=== PATIENT | female | born 1980 | race Caucasian/White ===

== ENCOUNTER 2019-03-24 00:25 | Emergency (ER) | payer OTHER ==
[2019-03-24 00:32] VITALS: BP 96/61; PULSE 50; TEMP 97.5; BMI 23.3
[2019-03-24] MEDS ORDERED: HYOSCYAMINE SULFATE 0.125 MG *ODT ONE (00:54)
[2019-03-24] MEDS ORDERED: HYOSCYAMINE SULFATE 0.125 MG *ODT PO ONE (00:54)
--- NOTE | 2019-03-24 00:54 | PDOC ---
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 She had mild abdominal discomfort throughout the afternoon and began to have diarrhea in the early evening(low volume, brown, watery; no blood or mucous). Pain became more severe later in the evening and patient reported here. No nausea/vomiting/fever noted no recent travel. no known sick contacts Past History - Past Medical History Allergies/Adverse Reactions: Allergies Allergy/AdvReac Type Severity Reaction Status Date / Time No Known Allergies Allergy Verified 03/24/19 00:28 Home Medications: Ambulatory Orders Hyoscyamine Odt [Levsin Odt -] 0.125 mg PO TID #10 tab.rapdis 03/24/19 COPD: No Other medical history: ENDOMETRIOSIS - Suicide/Smoking/Psychosocial Hx Smoking History: Never smoked Have you smoked in the past 12 months: No Information on smoking cessation initiated: No Hx Alcohol Use: No Drug/Substance Use Hx: No Review of Systems - Review of Systems Comments:: GENERAL/CONSTITUTIONAL: No fever or chills. No weakness. HEAD, EYES, EARS, NOSE AND THROAT: No change in vision. No ear pain or discharge. No sore throat. CARDIOVASCULAR: No chest pain or shortness of breath. RESPIRATORY: No cough, wheezing, or hemoptysis. GASTROINTESTINAL: No nausea, vomiting, diarrhea or constipation. GENITOURINARY: No dysuria, frequency, or change in urination. MUSCULOSKELETAL: No joint or muscle swelling or pain. No neck or back pain. SKIN: No rash NEUROLOGIC: No headache, vertigo, loss of consciousness, or change in strength/ sensation. ENDOCRINE: No increased thirst. No abnormal weight change. HEMATOLOGIC/LYMPHATIC: No anemia, easy bleeding, or history of blood clots. ALLERGIC/IMMUNOLOGIC: No hives or skin allergy. *Physical Exam - Vital Signs Last Vital Signs Temp Pulse Resp BP Pulse Ox 97.5 F L 50 L 18 96/61 100 03/24/19 00:29 03/24/19 00:29 03/24/19 00:29 03/24/19 00:29 03/24/19 00:29 - Physical Exam Comments: GENERAL: Awake, alert, and fully oriented, in moderate distress secondary to abdominal pain HEAD: No signs of trauma EYES: PERRLA, EOMI, sclera anicteric, conjunctiva clear ENT: Auricles normal inspection, hearing grossly normal, nares patent, oropharynx clear without exudates. Dry mucosa NECK: Normal ROM, supple, no lymphadenopathy, JVD, or masses LUNGS: Breath sounds equal, clear to auscultation bilaterally. No wheezes, and no crackles HEART: Regular rate and rhythm, normal S1 and S2, no murmurs, rubs or gallops ABDOMEN: Soft, nontender, normoactive bowel sounds. No guarding, no rebound. No masses EXTREMITIES: Normal range of motion, no edema. No clubbing or cyanosis. No cords, erythema, or tenderness NEUROLOGICAL: Cranial nerves II through XII grossly intact. Normal speech, normal gait SKIN: Warm, Dry, normal turgor, no rashes or lesions noted. Progress Note - Progress Note Progress Note: The patient presents with severe abdominal cramping with some diarrhea and no nausea/vomiting. Exam notable for soft,nondistended,nontender abdomen. Although the level of pain that the patient is exhibiting suggests SBO( which the patient does not have significant risk factors for), the exam is not consistent with obstruction. Likely, the smooth muscle spasm associated with the diarrhea is etiology of pain Levsin ODT 0.5mg SL provided temporary relief but cramping ultimately returned. 1 Liter of NS IV with 30mg Toradol IV given with good relief of symptoms *DC/Admit/Observation/Transfer Diagnosis at time of Disposition: Diarrhea Qualifiers: Diarrhea type: presumed infectious Qualified Code(s): R19.7 - Diarrhea, unspecified - Discharge Dispostion Disposition: HOME Condition at time of disposition: Stable - Prescriptions Prescriptions: Hyoscyamine Odt [Levsin Odt -] 0.125 mg PO TID #10 tab.rapdis - Referrals - Patient Instructions Printed Discharge Instructions: Diarrhea Additional Instructions: light diet advance as tolerated; drink plenty of fluids Peptobismol as needed Levsin ODT 0.5mg up to 3 X a day for cramping return if you have severe pain, blood in stool or high fever followup with your doctor if diarrhea for more than 5 days in any case see your doctor within1 week - Post Discharge Activity
[2019-03-24] MEDS ORDERED: KETOROLAC TROMETHAMINE 30 MG/1 ML VIAL IVPUSH ONE (01:10)
[2019-03-24] MEDS ORDERED: SODIUM CHLORIDE 1,000 ML IV STA (01:10)
[2019-03-24] MEDS ORDERED: KETOROLAC TROMETHAMINE 30 MG/1 ML VIAL ONE (01:13)
== END 2019-03-24 02:26 | disposition home or self-care (01) ==
LOC: FER 00:25
PROC: 3E0333Z Introduction of Anti-inflammatory into Peripheral Vein, Percutaneous Approach (ICD-10-PCS; principal; 2019-03-24)
PROC: 3E0337Z Introduction of Electrolytic and Water Balance Substance into Peripheral Vein, Percutaneous Approach (ICD-10-PCS; 2019-03-24)
DX: R19.7 Diarrhea, unspecified (principal)
CPT/HCPCS: 99281-25; J7030